=== PATIENT | female | born 1970 | race Caucasian/White ===

== ENCOUNTER 2017-09-24 07:42 | Day surgery (SDC) | payer OTHER ==
[2017-09-24] MEDS: POLYMYXIN/BACITRACIN 1L IRRIG IRR (08:30)
[2017-09-24] MEDS: CEFAZOLIN 1 GM/50 ML (PMX) 50 ML IVPB (08:30)
[2017-09-24] MEDS ORDERED: SOD CHLORIDE 0.9% 250 ML (09:36)
[2017-09-24] MEDS: LIDOCAINE 1% (MDV) 10 ML INJ (09:36)
[2017-09-24] MEDS: SOD CHLORIDE 0.9% 1,000 ML IV (10:30)
[2017-09-24] MEDS: FENTAnyl 50 MCG/ML VIAL (10:55)
[2017-09-24] MEDS: MIDAZOLAM 1 MG/ML 2 ML INJ (10:59)
== END 2017-09-24 12:50 | disposition home or self-care (01) ==
LOC: SDS 07:42
DX: C82.20 Follicular lymphoma grade III, unspecified, unspecified site (principal); M89.9 Disorder of bone, unspecified
CPT/HCPCS: 38221; 77012; 88305; 88311; 88313